=== PATIENT | female | born 1985 | race Caucasian/White ===

== ENCOUNTER → 2020-11-28 | Outpatient (CLI) | payer OTHER ==
[2020-11-29 07:10] LABS: HBSAG SCREEN Negative (Negative); HCV AB <0.1 (0.0-0.9); HEP B CORE AB, TOT Negative (Negative); RHEUMATOID ARTHRITIS FACTOR <10.0 IU/mL (0.0-13.9)
[2020-12-01 20:09] LABS: QUANTIFERON MITOGEN VALUE >10.00 IU/mL (.); QUANTIFERON NIL VALUE 3.65 IU/mL (.); QUANTIFERON TB1 AG VALUE >10.00 IU/mL (.); QUANTIFERON TB2 AG VALUE >10.00 IU/mL (.); QUANTIFERON-TB GOLD PLUS Positive (Negative)
== END ==
LOC: LAB 11:02
PROVIDERS: Nurse Practitioner Family
DX: M25.50 Pain in unspecified joint (principal); D89.9 Disorder involving the immune mechanism, unspecified; R76.8 Other specified abnormal immunological findings in serum
CPT/HCPCS: 36415; 81001; 82570; 82728; 83520; 84156; 84439; 84443; 85652; 86140; 86200; 86431; 86704; 86803; 87340

== ENCOUNTER → 2020-12-08 | Outpatient (CLI) | payer OTHER | LOC: RAD 14:01 | DX: R76.12 Nonspecific reaction to cell mediated immunity measurement of gamma interferon antigen response without active tuberculosis (principal) | CPT/HCPCS: 71046 ==